=== PATIENT | male | born 1970 | race African-American/Black ===

== ENCOUNTER 2025-03-22 06:12 | Emergency (ER) | payer OTHER ==
[~2025-03-22] VITALS: Ht 180.3 cm; Wt 96.0 kg
[2025-03-22] MEDS ORDERED: ATOR40TA71 PO (06:24)
[2025-03-22] MEDS ORDERED: AMLO10TA55 PO (06:24)
[2025-03-22] MEDS ORDERED: LEVE-71 PO (06:24)
[2025-03-22] MEDS ORDERED: HYDR12.54 PO (06:24)
[2025-03-22] MEDS: MORPHINE SULFATE 4 MG/ML SYRINGE IVP ONE ×2 (06:40→09:50)
[2025-03-22] MEDS: SODIUM CHLORIDE 0.9% 1,000 ML IV ONE (06:40)
[2025-03-22] MEDS: ONDANSETRON HCL 4 MG/2 ML VIAL IVP ONE (06:40)
[2025-03-22 06:51] LABS: ANION GAP 3 mmol/L (8-16); BASOPHILS % (AUTO) 0.9 % (0.0-2.0); CALCIUM, TOTAL 8.6 mg/dL (8.8-10.5); CARBON DIOXIDE 33 mmol/L (22-29); CHLORIDE 105 mmol/L (98-107); CREATININE 1.56 mg/dL (0.60-1.30); EOSINOPHILS % (AUTO) 3.2 % (1.0-6.0); GLOMERULAR FILTR. RATE CALC 57 mL/min (>60); GLUCOSE,RANDOM 109 mg/dL (70-110); HEMATOCRIT 33.7 % (41-53); HEMOGLOBIN 12.1 g/dL (13.5-17.5); LYMPHOCYTES % (AUTO) 18.2 % (22.0-44.0); MEAN CORPUSCULAR HEMOGLOBIN 31.1 pg (26.0-34.0); MEAN CORPUSCULAR HGB CONC 35.8 G/dL (31.0-37.0); MEAN CORPUSCULAR VOLUME 87 fL (80-100); MONOCYTES # (AUTO) 0.4 K/uL (0.1-1.0); MONOCYTES % (AUTO) 7.8 % (2.0-9.0); NEUTROPHILS # (AUTO) 3.7 K/uL (1.8-7.7); NEUTROPHILS % (AUTO) 69.9 % (40.0-70.0); PLATELET COUNT (AUTO) 231 K/uL (150-450); POTASSIUM 4.1 mmol/L (3.5-5.1); RED BLOOD CELL COUNT(AUTO) 3.89 MIL/uL (4.50-5.90); SODIUM SERUM 141 mmol/L (136-145); UREA NITROGEN, BLOOD 19 mg/dL (7-18); WHITE BLOOD COUNT (AUTO) 5.3 K/uL (4.5-11.0)
[2025-03-22 06:57] LABS: ALBUMIN 3.5 g/dL (3.4-5.0); BILIRUBIN,DIRECT 0.2 mg/dL (0.00-0.20); BILIRUBIN,TOTAL 0.7 mg/dL (0.1-1.0); D-DIMER 1.31 mg/L FEU (0.00-0.50); PROTHROMBIN TIME 11.1 SEC (9.4-11.6); TOTAL PROTEIN, SERUM 6.8 g/dL (6.4-8.2)
[2025-03-22 06:59] LABS: TROPONIN I-HIGH SENSITIVITY 27 ng/L (<76)
[2025-03-22 08:02] VITALS: TEMP 98.3
[2025-03-22] MEDS ORDERED: IOHEXOL 350 MG/ML 100 ML VIAL ONE (09:01)
[2025-03-22] MEDS ORDERED: SODIUM CHLORIDE 0.9% 100 ML ONE (09:01)
[2025-03-22] MEDS: ESMOLOL HCL 2,500 MG/NACL 250 ML IV PRN (10:08)
[2025-03-22] MEDS: NiCARDipine HCL 25 MG in SODIUM CHLORIDE 0.9% 240 ML IV PRN (10:49)
[2025-03-22 11:17] VITALS: RESP 16; O2SAT 97
[2025-03-22 11:56] VITALS: BP 150/73; PULSE 69
== END 2025-03-22 12:31 | disposition short-term general hospital (02) ==
LOC: EMS 06:13 → UNDOADMIN 07:20 → EDH 07:20
DX: I71.00 Dissection of unspecified site of aorta (principal); R07.2 Precordial pain; R61 Generalized hyperhidrosis; I10 Essential (primary) hypertension
CPT/HCPCS: 99291; 96374; 71275; 71045; 96361; 96375; 80048; 80076; 82550; 83880; 84484; 85025; 85379; 85610; 85730; 36415; 93005; 96376; Q9967; J2270; J3490; J2405; J7050 ×2